=== PATIENT | male | born 1985 | race Caucasian/White ===

== ENCOUNTER 2020-05-28 22:21 | Emergency (ER) | payer OTHER ==
[~2020-05-28] VITALS: Ht 175.3 cm; Wt 95.3 kg
[2020-05-28] MEDS ORDERED: RISPERDAL 3 MG T3 MG PO (22:41)
[2020-05-28 23:06] LABS: ABSOLUTE NEUTROPHILS 4.9 thou/uL (1.4-8.2); HEMATOCRIT 46.2 % (42.0-52.0); HEMOGLOBIN 16.5 gm/dL (14.0-18.0); LYMPHOCYTES 31.9 % (24.0-44.0); MCH 31.7 pg (26.0-34.0); MCHC 35.8 g/dL (28.0-37.0); MCV 88.4 fL (80.0-100.0); MONOCYTES 6.6 % (1.0-8.0); PLATELET COUNT 246 thou/uL (150-400); POLYS 55.5 % (36.0-66.0); RBC 5.22 mil/uL (4.50-6.00); WBC 8.9 thou/uL (4.0-11.0)
[2020-05-28 23:21] LABS: ANION GAP 11 mmol/L (7-16); BUN 9 mg/dL (7-18); CALCIUM 8.9 mg/dL (8.5-10.1); CHLORIDE 103 mmol/L (98-107); CO2 24 mmol/L (21-32); CREATININE 0.9 mg/dL (0.7-1.3); GLUCOSE 78 mg/dL (74-106); POTASSIUM 3.4 mmol/L (3.5-5.1); SODIUM 138 mmol/L (136-145)
[2020-05-28 23:29] LABS: TROPONIN-I <0.06 ng/mL (<0.06)
[2020-05-29 01:37] VITALS: BP 134/74
--- NOTE | 2020-05-29 08:33 | EKG ---
[facility] [place] [address] ELECTROCARDIOGRAM REPORT Name: HERNANDEZ MONTERO Room #: DEP [facility].#: [id number] Admission: 05/28/20 Attend Phys: Discharge: 05/29/20 Date of : 83 Report #: [id number] THIS REPORT FOR: cc: RHINA - Caity family physician/PCP RHINA - Caity family physician/PCP Matthias Maxwell MD [facility] THIS REPORT FOR: //name// [facility] ED Test Date: 2020-05-28 Test Time: 22:30:05 Pat Name: HERNANDEZ MONTERO Department: Room: Gender: Entry Tech: [id number] : 1985 Requested By: Rochelle Vizcarra Order Number: [id number] MD: Matthias Maxwell Measurements Intervals Boelus Rate: 100 P: 61 DE: 123 QRS: 5 QRSD: 88 T: 45 QT: 326 QTc: 421 Interpretive Statements Sinus tachycardia RSR' in V1 or V2, probably normal variant Baseline wander in lead(s) V1,V2 No previous ECG available for comparison Electronically Signed On 05-29-2020 8:32:51 CDT by Matthias Maxwell [email or web address] <ELECTRONICALLY SIGNED> By: Matthias Maxwell MD, [facility] 05/29/20 0832 29 29 Matthias Maxwell MD, [facility] /EPI
== END 2020-05-29 01:38 ==
LOC: ER 22:21
PROVIDERS: Emergency Medicine
DX: R07.89 Other chest pain (principal); R06.02 Shortness of breath; Z79.899 Other long term (current) drug therapy